=== PATIENT | female | born 1970 | race African-American/Black ===

== ENCOUNTER 2017-06-10 11:10 | Emergency (ER) | payer OTHER, SELFPAY ==
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
== END 2017-06-10 12:36 | disposition home or self-care (01) ==
LOC: ERS 11:10
DX: S63.502A Unspecified sprain of left wrist, initial encounter (principal); Z87.891 Personal history of nicotine dependence; W50.2XXA Accidental twist by another person, initial encounter; Y92.129 Unspecified place in nursing home as the place of occurrence of the external cause

== ENCOUNTER 2017-11-02 12:39 | Emergency (ER) | payer SELFPAY ==
[2017-11-02] MEDS ORDERED: Ketorolac Tromethamine 30 MG/ML VIAL ONE (13:01)
== END 2017-11-02 13:23 | disposition home or self-care (01) ==
LOC: SCSER 12:39
DX: M54.31 Sciatica, right side (principal); Z87.891 Personal history of nicotine dependence
CPT/HCPCS: 96372; J1885

== ENCOUNTER 2017-12-12 17:42 | Emergency (ER) | payer SELFPAY ==
[2017-12-12] MEDS ORDERED: HYDROcodone/Acetaminophen 10/325 mg Tablet ONE (19:20)
[2017-12-12] MEDS ORDERED: Ketorolac Tromethamine 30 MG/ML VIAL ONE (19:20)
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
== END 2017-12-12 20:20 | disposition home or self-care (01) ==
LOC: ERS 17:42
DX: S00.93XA Contusion of unspecified part of head, initial encounter (principal); S10.93XA Contusion of unspecified part of neck, initial encounter; Z87.891 Personal history of nicotine dependence; Y04.2XXA Assault by strike against or bumped into by another person, initial encounter
CPT/HCPCS: 70450; 71045; 72125; 96372; J1885

== ENCOUNTER 2018-04-28 17:05 | Emergency (ER) | payer SELFPAY ==
--- NOTE | 2018-04-28 19:14 | RAD ---
TWO VIEW CHEST: 04/28/18 INDICATION: Cough. COMPARISON: 04/15/17. FINDINGS: Stable granulomatous calcification seen at the lateral left lower lung. Right lung is clear. Cardiac silhouette is within normal limits in size. IMPRESSION: Stable chest. POS: [facility]
== END 2018-04-28 18:35 | disposition home or self-care (01) ==
LOC: SCSER 17:05
DX: J20.9 Acute bronchitis, unspecified (principal); F17.200 Nicotine dependence, unspecified, uncomplicated; Z71.6 Tobacco abuse counseling
CPT/HCPCS: 71046; 87804; 99406

== ENCOUNTER 2018-05-02 20:16 | Emergency (ER) | payer SELFPAY | END 2018-05-02 20:44 | disposition home or self-care (01) | LOC: ERS 20:16 | DX: L03.011 Cellulitis of right finger (principal); Z87.891 Personal history of nicotine dependence | CPT/HCPCS: 10060 ==

== ENCOUNTER 2018-11-16 20:28 | Emergency (ER) | payer SELFPAY | END 2018-11-16 20:57 | disposition home or self-care (01) | LOC: ERS 20:28 | DX: S00.83XA Contusion of other part of head, initial encounter (principal); Z87.891 Personal history of nicotine dependence; W20.8XXA Other cause of strike by thrown, projected or falling object, initial encounter | CPT/HCPCS: 99283 ==

== ENCOUNTER 2018-11-20 15:39 | Emergency (ER) | payer SELFPAY ==
[2018-11-20] MEDS ORDERED: Ketorolac Tromethamine 30 MG/ML VIAL ONE (15:56)
--- NOTE | 2018-11-20 16:33 | RAD ---
Right forearm 2 views: HISTORY: Fall, right forearm pain FINDINGS: The right radius and ulna appear intact.
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
== END 2018-11-20 17:08 | disposition home or self-care (01) ==
LOC: ERS 15:39
DX: S40.021A Contusion of right upper arm, initial encounter (principal); Z87.891 Personal history of nicotine dependence; W19.XXXA Unspecified fall, initial encounter
CPT/HCPCS: 71045; 96372; J1885

== ENCOUNTER 2018-11-22 18:53 | Emergency (ER) | payer SELFPAY ==
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
[2018-11-22 20:56] LABS: #Basophils 0.1 thou/uL (0.0-0.2); #Eosinphils 0.3 thou/uL (0.0-0.7); #Lymphocytes 2.8 thou/uL (1.20-3.40); #Monocytes 0.5 thou/uL (0.11-0.59); #Neutrophils 3.5 thou/uL (1.40-6.50); %Basophils 0.9 % (0.0-1.0); %Eosinophils 3.6 % (0.0-10.0); %Lymphocytes 38.8 % (21.0-51.0); %Monocytes 6.8 % (0.0-10.0); Hemoglobin 12.9 g/dL (12.0-16.0); Mean Corpuscular HGB CONC 32.3 g/dL (32.0-36.0); Mean Corpuscular Hemoglobin 32.8 pg (27.0-31.0); Mean Platelet Volume 7.1 fL (7.4-10.4); Platelet Count 240 thou/uL (130-400); RBC Distribution Width 12.5 % (11.5-14.5); Red Blood Cell (RBC) Count 3.94 mill/uL (4.20-5.40); White Blood Cell (WBC) Count 7.1 thou/uL (4.8-10.8)
--- NOTE | 2018-11-22 20:57 | RAD ---
RADIOGRAPH CHEST 2 VIEWS: DATE: 11/22/2018 HISTORY: 48-year-old female with chest pain FINDINGS: There is no airspace density, pulmonary edema, pleural effusion, pneumothorax, or cardiomegaly. IMPRESSION: No acute cardiopulmonary findings.
[2018-11-22 21:16] LABS: ALT (SGPT) 11 U/L (8-55); AST (SGOT) 13 U/L (5-34); Albumin 4.1 g/dL (3.5-5.0); Alkaline Phosphatase 57 U/L (40-150); Anion Gap 11 mmol/L (10-20); BUN (Urea Nitrogen) 13 mg/dL (7.0-18.7); Bilirubin, Total 0.2 mg/dL (0.2-1.2); CK (CPK) 123 U/L (29-168); Calc. Creatinine Clearance 0 mL/min (70-130); Calcium 9.5 mg/dL (7.8-10.44); Carbon Dioxide 28 mmol/L (22-29); Chloride 105 mmol/L (98-107); Estimated GFR-MDRD Greater than 90; Glucose 99 mg/dL (70-105); Lipase 41 U/L (8-78); Potassium 4.2 mmol/L (3.5-5.1); Protein, Total 7.1 g/dL (6.0-8.3); Sodium 140 mmol/L (136-145)
[2018-11-22] MEDS ORDERED: Meclizine HCl 25 MG TAB ONE (22:28)
[2018-11-22] MEDS ORDERED: Acetaminophen 500 MG TAB ONE (22:28)
[2018-11-22] MEDS ORDERED: Ondansetron PF 4 MG/2 ML Vial ONE (22:54)
[2018-11-22] MEDS ORDERED: Ketorolac Tromethamine 30 MG/ML VIAL ONE (22:54)
== END 2018-11-22 23:53 | disposition home or self-care (01) ==
LOC: ERS 18:53
DX: S05.12XA Contusion of eyeball and orbital tissues, left eye, initial encounter (principal); R42 Dizziness and giddiness; R51 Headache; E78.5 Hyperlipidemia, unspecified; F17.210 Nicotine dependence, cigarettes, uncomplicated; V80.010A Animal-rider injured by fall from or being thrown from horse in noncollision accident, initial encounter
CPT/HCPCS: 36415; 70450; 71046; 80053; 82550; 83690; 84484; 85025; 93005; 94760; 96361; 96374; 96375; J1885; J2405; J8499

== ENCOUNTER 2019-05-09 08:50 | Outpatient (CLI) | payer OTHER ==
--- NOTE | 2019-05-09 09:46 | MRI ---
LUMBAR SPINE MRI WITHOUT CONTRAST: DATE: 05/09/2019. COMPARISON: None. HISTORY: Low back pain with bilateral lower extremity radiculopathy. TECHNIQUE: Multiplanar multisequence MR imaging of the lumbar spine obtained without contrast. FINDINGS: There is a partially imaged lobulated structure within the central pelvis suggesting an enlarged part ially visualized fibroid uterus. This could be best assessed via pelvic ultrasound. The sagittal STIR imaging demonstrates mild edema within the pedicle on the right at L4 and L5 with e swetha/fluid within the right L4-5 facet joint. This can be seen on the basis of degenerative change and/or prior facet joint injection. No anterolisthesis or retrolisthesis is noted within the lumbar spine. On the basis of 5 lumbar-type vertebral bodies, conus medullaris terminates at the L1-2 level. T12-L1: Unremarkable. L1-2: Unremarkable. L2-3: Unremarkable. L3-4: Mild bilateral facet hypertrophy. No central canal or neural foraminal stenosis. L4-5: There is mild disc bulge with mild central canal stenosis. There is bilateral facet hypertrophy and hypertrophy of the ligamentum flavum, right greater than left. Mild neural foraminal stenosis on the left and moderate/severe neural foraminal stenosis on the right. L5-S1: There is mild disc space narrowing and disc bulge with a central annular tear. No significant central canal stenosis. Mild bilateral facet hypertrophy with mild bilateral neural foraminal stenosis, right greater than left. Imaged retroperitoneal structures appear grossly unremarkable. IMPRESSION: 1. Degenerative disc disease of the lumbar spine. Most significant finding is facet hypertrophy on t he right at L4-5 with associated neural foraminal stenosis. 2. Findings suggesting a partially visualized fibroid uterus for which follow-up pelvic ultrasound i s suggested. Transcribed Date/Time: 05/09/2019 9:53 AM
--- NOTE | 2019-05-09 10:12 | RAD ---
Lumbar spine 4 views: 05/09/2019 COMPARISON: None HISTORY: Low back pain, lumbar radiculopathy FINDINGS: There appear to be hypoplastic ribs at the T12 level. On the frontal examination the lumbar pedicles appear intact. The neutral lateral examination demonstrates no anterolisthesis or retrolisthesis. Upon flexion there is anterolisthesis of L4 on L5 measuring approximately 6 mm. This anterolisthesis is not present on the extension view. No acute osseous abnormality is noted. IMPRESSION: 6 mm of anterolisthesis at L4-5 upon flexion.
== END 2019-05-09 08:51 | disposition home or self-care (01) ==
LOC: BICMRI 08:50
PROVIDERS: ATTEND Surgery
DX: M51.16 Intervertebral disc disorders with radiculopathy, lumbar region (principal); M43.16 Spondylolisthesis, lumbar region; M48.061 Spinal stenosis, lumbar region without neurogenic claudication; M47.26 Other spondylosis with radiculopathy, lumbar region
CPT/HCPCS: 72110; 72148

== ENCOUNTER 2019-06-07 22:00 | Emergency (ER) | payer SELFPAY ==
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
== END 2019-06-07 23:38 | disposition home or self-care (01) ==
LOC: SCSER 22:00
DX: S63.601A Unspecified sprain of right thumb, initial encounter (principal); E78.5 Hyperlipidemia, unspecified; F17.210 Nicotine dependence, cigarettes, uncomplicated; X50.9XXA Other and unspecified overexertion or strenuous movements or postures, initial encounter

== ENCOUNTER 2019-09-21 09:41 | Day surgery (SDC) | payer OTHER ==
[2019-09-21 10:24] LABS: #Basophils 0.1 thou/uL (0.0-0.2); #Eosinphils 0.2 thou/uL (0.0-0.7); #Lymphocytes 2.1 thou/uL (1.20-3.40); #Monocytes 0.4 thou/uL (0.11-0.59); #Neutrophils 2.2 thou/uL (1.40-6.50); %Basophils 1.4 % (0.0-1.0); %Eosinophils 3.2 % (0.0-10.0); %Lymphocytes 42.6 % (21.0-51.0); %Monocytes 8.2 % (0.0-10.0); %Neutrophils 44.7 % (42.0-75.0); Hemoglobin 13.7 g/dL (12.0-16.0); Mean Corpuscular HGB CONC 32.9 g/dL (32.0-36.0); Mean Corpuscular Hemoglobin 33.1 pg (27.0-31.0); Mean Platelet Volume 7.2 fL (7.4-10.4); Platelet Count 254 thou/uL (130-400); RBC Distribution Width 12.4 % (11.5-14.5); Red Blood Cell (RBC) Count 4.13 mill/uL (4.20-5.40); White Blood Cell (WBC) Count 4.8 thou/uL (4.8-10.8)
[2019-09-21] MEDS ORDERED: Thrombin 5000 UNITS/5 ML VIAL ONE (10:31)
[2019-09-21] MEDS ORDERED: Fentanyl 100 MCG/2 ML VIAL ONE ×4 (10:35→14:47)
[2019-09-21] MEDS ORDERED: HYDROmorphone 0.5 MG/0.5 ML SYRINGE ONE (10:35)
[2019-09-21 10:43] LABS: Anion Gap 13 mmol/L (10-20); BUN (Urea Nitrogen) 13 mg/dL (7.0-18.7); Calc. Creatinine Clearance 100 mL/min (70-130); Calcium 9.5 mg/dL (7.8-10.44); Carbon Dioxide 26 mmol/L (22-29); Chloride 106 mmol/L (98-107); Estimated GFR-MDRD Greater than 90; Glucose 92 mg/dL (70-105); Potassium 4.2 mmol/L (3.5-5.1); Sodium 141 mmol/L (136-145)
[2019-09-21 10:50] LABS: INR-International Normal Ratio 0.9; PTT 29.1 SEC (22.9-36.1); Prothrombin Time 12.5 SEC (12.0-14.7)
[2019-09-21] MEDS ORDERED: PROPOFOL 200 MG/20 ML VIAL ONE (10:52)
[2019-09-21] MEDS ORDERED: Rocuronium Bromide 10 MG/ML (10ML VIAL) ONE (10:52)
[2019-09-21] MEDS ORDERED: Lidocaine 1% PF 5 ML VIAL ONE (10:52)
[2019-09-21] MEDS ORDERED: Ondansetron PF 4 MG/2 ML Vial ONE (10:52)
[2019-09-21] MEDS ORDERED: Esmolol 100 MG/10 ML VIAL ONE (10:52)
[2019-09-21] MEDS ORDERED: PHENYLEPHRINE-NS 100 MCG/ML 10 ML SYRINGE ONE (10:52)
[2019-09-21] MEDS ORDERED: Dexamethasone 20 MG/5 ML VIAL ONE (10:52)
[2019-09-21] MEDS ORDERED: Midazolam HCl 2 mg/2 ml Vial ONE (11:00)
[2019-09-21] MEDS ORDERED: Fleet Enema 133 ML BOT PR PRN (13:58)
[2019-09-21] MEDS ORDERED: Mag-Al 1200 mg/1200 mg/30 ML UDCUP PO PRN (13:58)
[2019-09-21] MEDS ORDERED: Milk Of Magnesia 30 ML UDCUP PO PRN (13:58)
[2019-09-21] MEDS ORDERED: Acetaminophen 325 MG TAB PO PRN (13:58)
[2019-09-21] MEDS ORDERED: Ondansetron PF 4 MG/2 ML Vial IVP PRN (13:58)
[2019-09-21] MEDS ORDERED: Acetaminophen/Codeine 30-300mg Tablet PO PRN (13:58)
[2019-09-21] MEDS ORDERED: traMADol HCl 50 MG TAB PO PRN (13:58)
[2019-09-21] MEDS ORDERED: Bisacodyl 10 MG SUPP PR PRN (13:58)
--- NOTE | 2019-09-21 14:29 | OP ---
DATE OF PROCEDURE: 09/21/2019 [employer] SAL[employer]: Emma Hyde PA-C. PREPROCEDURE DIAGNOSIS: Low back and right greater than left lower extremity pain with right L4-L5 lateral disk extrusion and compression of the exiting right L4 nerve root. POSTPROCEDURE DIAGNOSIS: Low back and right greater than left lower extremity pain with right L4-L5 lateral disk extrusion and compression of the exiting right L4 nerve root. PROCEDURE PERFORMED: 1. L4-L5 laminectomy, partial facetectomy, foraminotomy. 2. Transfacet approach for right L4-L5 lateral disk extrusion for decompression of the exiting right L4 nerve root. 3. Use of operative microscope for microdissection. DESCRIPTION OF PROCEDURE: After informed consent was obtained from the patient, the patient was brought to the OR. Proper patient, pause, and identification were carried out. She was placed under excellent general endotracheal anesthesia and positioned prone on the OR table. All appropriate points were padded. We identified the L4-L5 dorsal spines and lamina. A linear quiana was made. This area sterilely cleansed, prepared, and draped. Proper patient, pause, and identification were carried out. The wound was then opened with a combination of sharp, monopolar and blunt dissection. The L4-L5 dorsal spines and lamina were exposed. Localization film confirmed area of interest. We then performed an L4-L5 laminectomy, partial facetectomy, foraminotomies and worked in the right L4-L5 transfacet approach with decompression of the exiting right L4 nerve root in the foramen and extraforaminal with diskectomy. Copious irrigation occurred throughout as to maximize hemostasis. The wound was then closed in anatomic layers following a sprinkling of vancomycin powder. Meticulous hemostasis. We had excellent decompression of the common dural tube, the L4 and L5 nerve roots bilaterally. There was no spinal fluid leak. The patient emerged from anesthesia. Job ID: [id number]
[2019-09-21] MEDS ORDERED: Promethazine HCl 25 MG/ML VIAL IM/IV PRN (14:35)
[2019-09-21] MEDS ORDERED: Ondansetron HCl/PF 4 MG/2 ML Vial IVP PRN (14:35)
[2019-09-21] MEDS ORDERED: Non-Formulary Medication 1 EACH PO PRN (14:35)
[2019-09-21] MEDS: Morphine 2 MG/ML SYRINGE SLOW IVP PRN ×3 (15:54→20:02)
[2019-09-21] MEDS ORDERED: diphenhydrAMINE 50 MG/ML VIAL IVP SCH (16:00)
[2019-09-21] MEDS: Gabapentin 300 MG CAP PO SCH ×2 (16:02→20:03)
[2019-09-21 16:17] VITALS: BMI 28.9
[2019-09-21] MEDS: Sodium Chloride 0.9% 1,000 ML IV SCH (16:48)
--- NOTE | 2019-09-21 16:54 | EKG ---
Test Reason : PREOP Blood Pressure : / mmHG Vent. Rate : 062 BPM Atrial Rate : 062 BPM P-R Int : 234 ms QRS Dur : 094 ms QT Int : 400 ms P-R-T Axes : 040 063 022 degrees QTc Int : 406 ms Sinus rhythm with 1st degree A-V block repolarization variant When compared with ECG of 22-NOV-2018 21:22, (Unconfirmed) No significant change was found Confirmed by DR. Jessica ERIC ([id number]) on 09/21/2019 4:54:00 PM Referred By: KAT Confirmed By:DR. Jessica ERIC
[2019-09-21] MEDS: HYDROcodone/Acetaminophen 7.5/325 mg Tablet PO PRN ×2 (17:01→21:12)
[2019-09-21] MEDS ORDERED: CEFAZOLIN 2 GM in Premix Bag 1 BAG IVPB SCH (18:00)
[2019-09-21] MEDS: CEFAZOLIN 2 GM in Premix Bag 1 BAG IVPB SCH (20:03)
[2019-09-21] MEDS: tiZANidine HCl 4 MG TAB PO PRN (20:03)
[2019-09-21] MEDS ORDERED: diphenhydrAMINE 25 MG CAP PO PRN (22:00)
[2019-09-22] MEDS: CEFAZOLIN 2 GM in Premix Bag 1 BAG IVPB SCH (03:31)
[2019-09-22] MEDS: Sodium Chloride 0.9% 1,000 ML IV SCH (04:28)
[2019-09-22] MEDS: tiZANidine HCl 4 MG TAB PO PRN (06:32)
[2019-09-22] MEDS: HYDROcodone/Acetaminophen 7.5/325 mg Tablet PO PRN (08:16)
[2019-09-22] MEDS: Gabapentin 300 MG CAP PO SCH (08:16)
[2019-09-22 08:23] VITALS: TEMP 98.1
--- NOTE | 2019-09-22 11:25 | PRG ---
DATE OF SERVICE: Ms. Mitchell is postoperative day 1 from lumbar decompression and right transfacet diskectomy at L4-L5. She has had resolution in her leg pain and is doing very well. We went over intra and postoperative issues. She is neurologically intact. She is voiding on her own and ambulating. We will plan for dismissal. Job ID: [id number]
[2019-09-22 12:15] VITALS: BP 104/68
== END 2019-09-22 12:45 | disposition home or self-care (01) ==
LOC: SDC 09:41 → SURG A 14:03 → SDC 09-22 12:45
PROVIDERS: ATTEND Surgery
PROC: 01NB0ZZ Release Lumbar Nerve, Open Approach (ICD-10-PCS; principal; 2019-09-22)
DX: M48.061 Spinal stenosis, lumbar region without neurogenic claudication (principal); M54.16 Radiculopathy, lumbar region
CPT/HCPCS: 36415; 76000; 80048; 85025; 85610; 85730; 93005; 93010; J0690; J1100; J1170; J1200; J2001; J2250; J2270; J2405; J2704; J3010; J3370; J3490

== ENCOUNTER 2020-04-09 08:55 | Emergency (ER) | payer SELFPAY ==
[2020-04-09 10:54] LABS: Bacteria/HPF None Seen HPF (None Seen); Bilirubin Negative (Negative); Blood, Urine Negative (Negative); Clarity Clear (Clear); Glucose, Urine (Dipstick) Normal (Negative); Ketone, Urine Negative (Negative); Leukocyte 75 Leu/uL (Negative); Nitrite Negative (Negative); Protein, Urine (Dipstick) Negative (Neg-Trace); RBC/HPF 0-3 HPF (0-3); Specific Gravity, Urine 1.019 (1.002-1.036); Squamous Epithelial 0-3 HPF (0-3); Urobilinogen Normal mg/dL (Less than 2); pH, Urine 6.5 (5.0-9.0)
[2020-04-09 11:02] LABS: Pregnancy Test - Urine (BHCG) Negative (Negative); Pregu Control Background? CLEAR/WHITE (CLR/WHITE); Pregu Control Bar Appear? YES (CONTROL BAR); Specific Gravity 1.019 (1.002-1.036)
[2020-04-11 23:33] LABS: Chlamydia by PCR Not Detected (NotDetected); GC by PCR DETECTED (NotDetected)
== END 2020-04-09 12:56 | disposition home or self-care (01) ==
LOC: ERS 08:55
DX: N76.0 Acute vaginitis (principal); E78.5 Hyperlipidemia, unspecified; F17.210 Nicotine dependence, cigarettes, uncomplicated
CPT/HCPCS: 81003; 81015; 81025; 87480; 87491; 87510; 87591; 87660; 99283

== ENCOUNTER 2020-04-11 13:56 | Outpatient (CLI) | payer OTHER ==
--- NOTE | 2020-04-11 14:59 | RAD ---
LUMBAR SPINE FOUR VIEWS: 04/11/20 INDICATION: History of back pain. COMPARISON: Prior exam dated 05/09/19. FINDINGS: Hypoplastic ribs are seen at T12. There are five lumbar type vertebrae. Again seen is mild anterolist hesis of L4 on L5 with flexion that does not fully reduce in neural or extension positioning. No vaibhav tional area of abnormal translation of motion is evident. Multiple phleboliths are seen within the lo wer pelvis. Bowel gas pattern is unobstructed. IMPRESSION: 1. Grade I anterolisthesis at L4-L5 with mild abnormal translational motion. 2. No additional abnormality. POS: [facility]
--- NOTE | 2020-04-11 15:57 | MRI ---
MRI OF THE LUMBAR SPINE WITH AND WITHOUT IV CONTRAST : 04/11/20 INDICATIONS: History of lumbar surgery in August 2019 with mid back pain. COMPARISON: Prior MRI lumbar spine without contrast dated 05/09/19. TECHNIQUE: Multiplanar and multisequence MR images were obtained of the lumbar spine with and without contrast u tilizing 15 mL of Multihance. FINDINGS: Since comparison examination, there has been interval performance of a laminectomy at L4. The conus is seen to terminate at approximately T12-L1. The visualized retroperitoneum and paravertebral soft tissues demonstrate a stable fibroid uterus. At L5-S1, there is a stable broad based bulge with a superimposed central protrusion. There is loss o f disc space height in addition to facet hypertrophy inducing mild bilateral neural foraminal narrowi ng which is stable to the prior exam. At L4-5, there is a broad based bulge with facet hypertrophy with loss of disc space height inducing moderate to severe bilateral neural foraminal narrowing which is stable. At L3-4, there is a mild facet joint degenerative change on the right. There is a mild broad based bu lge but no appreciable central canal or neural foraminal narrowing. At L2-3, there is no appreciable central canal or neural foraminal narrowing. At L1-2, there is no appreciable central canal or neural foraminal narrowing. At T12-L1, there is no appreciable central canal or neural foraminal narrowing. Postcontrast series demonstrates no abnormal region of enhancement. On the STIR images, there are are as of increased T2 signal seen within the bilateral pedicles of L4 and L5 with increased fluid presen t within the facet complexes bilaterally at L4-5. IMPRESSION: 1. Postoperative change of a laminectomy at L4 with improved central canal narrowing at L4-5. Th ere is stable moderate to severe bilateral neural foraminal narrowing at L4-5 with mild bilateral kinsey ral foraminal narrowing at L5-S1. 2. Increased fluid signal intensity seen within the facet complexes at L4-5 with some edematous change in the surrounding facets and pedicles at L4 and L5 that do appear to enhance. Findings are n onspecific and may reflect sequela of reactive edema from accelerated facet osteoarthritic change; ho wever, entity such as septic arthritis of the facet complex with adjacent osteomyelitis cannot be ent irely excluded. Would recommend correlation with the clinical examination. No overt drainable epidura l or post paraspinal soft tissue fluid collection is evident. Code T POS: [facility]
== END 2020-04-11 13:57 | disposition home or self-care (01) ==
LOC: TBSIIMAG 13:56
PROVIDERS: ATTEND Surgery
DX: M54.16 Radiculopathy, lumbar region (principal); M48.061 Spinal stenosis, lumbar region without neurogenic claudication; M48.07 Spinal stenosis, lumbosacral region; M43.16 Spondylolisthesis, lumbar region; Z98.890 Other specified postprocedural states
CPT/HCPCS: 72110; 72158

== ENCOUNTER 2022-04-15 16:17 | Emergency (ER) | payer MEDICAID, SELFPAY ==
[2022-04-15] MEDS ORDERED: Dexamethasone 10 MG/ML VIAL ONE (18:13)
== END 2022-04-15 18:31 | disposition home or self-care (01) ==
LOC: ERS 16:17
DX: J45.901 Unspecified asthma with (acute) exacerbation (principal); Z87.891 Personal history of nicotine dependence
CPT/HCPCS: 71046; 93005; 94640; J1100; J7620

== ENCOUNTER 2023-05-28 07:32 | Emergency (ER) | payer SELFPAY ==
[2023-05-28] MEDS ORDERED: Ondansetron ODT 4 MG TAB ONE (08:30)
[2023-05-28 08:48] LABS: SARS-CoV-2 NAA Rapid Test Not Detected (NotDetected)
== END 2023-05-28 09:29 | disposition home or self-care (01) ==
LOC: ERS 07:32
DX: B34.9 Viral infection, unspecified (principal); R19.7 Diarrhea, unspecified; R09.81 Nasal congestion; Z20.822 Contact with and (suspected) exposure to COVID-19
CPT/HCPCS: 99284; Q0162

== ENCOUNTER 2023-07-29 07:06 | Emergency (ER) | payer SELFPAY ==
[2023-07-29] MEDS ORDERED: predniSONE 20 MG TAB ONE (07:34)
[2023-07-29] MEDS ORDERED: Ipratropium/Albuterol 3 ML NEB ONE ×2 (07:35→08:37)
[2023-07-29 08:35] LABS: SARS-CoV-2 NAA Rapid Test Not Detected (NotDetected)
== END 2023-07-29 09:30 | disposition home or self-care (01) ==
LOC: ERS 07:06
DX: B34.9 Viral infection, unspecified (principal); J45.909 Unspecified asthma, uncomplicated; F17.210 Nicotine dependence, cigarettes, uncomplicated; Z79.899 Other long term (current) drug therapy
CPT/HCPCS: 71046; 87804; 94640; J7512; J7620; U0002

== ENCOUNTER 2023-12-18 09:57 | Emergency (ER) | payer SELFPAY ==
[2023-12-18 11:15] LABS: Bacteria/HPF None Seen HPF (None Seen); Bilirubin Negative (Negative); Blood, Urine Negative (Negative); CAUTI Indications for Culture Pelvic or flank pain; Clarity Clear (Clear); Glucose, Urine (Dipstick) Normal (Negative); Ketone, Urine Negative (Negative); Leukocyte Negative Leu/uL (Negative); Nitrite Negative (Negative); Protein, Urine (Dipstick) Negative (Neg-Trace); RBC/HPF 0-3 HPF (0-3); Specific Gravity, Urine 1.011 (1.002-1.036); Squamous Epithelial 0-3 HPF (0-3); Urobilinogen Normal mg/dL (Less than 2); WBC/HPF 0-3 HPF (0-3); pH, Urine 6.5 (5.0-9.0)
[2023-12-18] MEDS ORDERED: Ketorolac Tromethamine 30 MG (1 mL) VIAL ONE (11:17)
[2023-12-18 11:22] LABS: Sperm/HPF 1+ HPF (None Seen)
[2023-12-18 11:24] LABS: Urine Culture Reflex No No
== END 2023-12-18 11:37 | disposition home or self-care (01) ==
LOC: ERS 09:57
DX: M54.50 Low back pain, unspecified (principal); G89.29 Other chronic pain; F17.210 Nicotine dependence, cigarettes, uncomplicated
CPT/HCPCS: 81001; 96372; 99283; J1885

== ENCOUNTER 2024-05-05 07:50 | Emergency (ER) | payer OTHER ==
[2024-05-05] MEDS ORDERED: Albuterol 2.5 MG (0.5 mL) NEB ONE (08:23)
[2024-05-05] MEDS ORDERED: Dexamethasone 10 MG/ML VIAL ONE (08:23)
[2024-05-05] MEDS ORDERED: Ipratropium Bromide 2.5 ml Neb ONE (08:33)
[2024-05-05] MEDS ORDERED: Albuterol 2.5 MG (3 mL) NEB ONE (08:33)
[2024-05-05 08:39] LABS: #Basophils Less than 0.03 10x3/uL (0.0-0.2); %Basophils 0.4 % (0.0-1.0); %Lymphocytes 30.7 % (21.0-51.0); %Monocytes 9.1 % (0.0-10.0); %Neutrophils 55.6 % (42.0-75.0); Hematocrit 35.5 % (36.0-47.0); Hemoglobin 11.4 g/dL (12.0-16.0); Mean Corpuscular HGB CONC 32.1 g/dL (32.0-36.0); Mean Corpuscular Hemoglobin 32.2 pg (27.0-31.0); Mean Corpuscular Volume 100.3 fL (78.0-98.0); Platelet Count 218 10x3/uL (130-400); RBC Distribution Width 13.5 % (11.5-14.5); Red Blood Cell (RBC) Count 3.54 mill/uL (4.20-5.40)
[2024-05-05 08:58] LABS: ALT (SGPT) 13 U/L (8-55); AST (SGOT) 13 U/L (5-34); Albumin 3.6 g/dL (3.5-5.0); Alkaline Phosphatase 49 U/L (40-110); Anion Gap 8 mmol/L (10-20); BUN (Urea Nitrogen) 13 mg/dL (9.8-20.1); Bilirubin, Total 0.4 mg/dL (0.2-1.2); Calc. Creatinine Clearance 0 mL/min (70-130); Calcium 8.9 mg/dL (7.8-10.44); Carbon Dioxide 27 mmol/L (22-29); Chloride 109 mmol/L (98-107); Estimated GFR 98; Globulin 3.2 g/dL (2.4-3.5); Glucose 91 mg/dL (70-105); Potassium 3.4 mmol/L (3.5-5.1); Protein, Total 6.8 g/dL (6.0-8.3); Sodium 141 mmol/L (136-145)
[2024-05-05 10:15] LABS: Bacteria/HPF None Seen HPF (None Seen); Bilirubin Negative (Negative); Blood, Urine Negative (Negative); CAUTI Indications for Culture Dysuria,urgency,freq; Clarity Clear (Clear); Glucose, Urine (Dipstick) Normal (Negative); Ketone, Urine Negative (Negative); Leukocyte Negative Leu/uL (Negative); Nitrite Negative (Negative); Protein, Urine (Dipstick) Negative (Neg-Trace); RBC/HPF 0-3 HPF (0-3); Specific Gravity, Urine 1.007 (1.002-1.036); Urobilinogen Normal mg/dL (Less than 2); WBC/HPF 0-3 HPF (0-3); pH, Urine 6.5 (5.0-9.0)
[2024-05-05 10:23] LABS: Urine Culture Reflex No No
== END 2024-05-05 10:33 | disposition home or self-care (01) ==
LOC: ERS 07:50
DX: J42 Unspecified chronic bronchitis (principal); F17.210 Nicotine dependence, cigarettes, uncomplicated
CPT/HCPCS: 36415; 71045; 80053; 81001; 85025; 94644; J1100; J7611; J7644